=== PATIENT | female | born 1930 | race Caucasian/White ===

== ENCOUNTER → 2016-08-17 | Outpatient (CLI) | payer MEDICARE, BC ==
[~2016-08-17] MED LIST: APIX2.5T PO; BENA40TA41 PO; LEVO50TA74 PO; NIT4 SL; PYRI60TA9 PO; ROSU20TA PO; [UNRECOGNIZED DRUG - OTHER]
--- NOTE | 2016-08-17 12:30 | RADRPT ---
PROCEDURE: Left knee radiographs. CLINICAL INDICATION: Left knee pain. TECHNIQUE: Four views. Weight bearing. Frontal, lateral, oblique, and patellar view. COMPARISON: No prior studies are available for comparison. FINDINGS: There is no fracture or dislocation. Vascular calcifications are present consistent with atherosclerosis. There are degenerative changes with osteophytes arising from all 3 joint compartment margins. There is medial joint compartment narrowing, subarticular sclerosis, and deformity. There is no lytic or blastic lesion. There is no radiopaque foreign body. IMPRESSION: 1. Atherosclerosis. 2. 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 RPTAT: QQ .Jerad Sigala MD, MD Date Time Electronically viewed and signed by .Jerad Sigala MD, MD on 08/17/2016 12:30 .R/
== END | disposition home or self-care (01) ==
LOC: HKI 09:07
PROVIDERS: ATTEND Orthopaedic Surgery
DX: M17.12 Unilateral primary osteoarthritis, left knee (principal); I70.202 Unspecified atherosclerosis of native arteries of extremities, left leg